=== PATIENT | female | born 1955 | race Caucasian/White ===

== ENCOUNTER 2017-11-16 05:59 | Day surgery (SDC) | payer BC ==
[~2017-11-16] VITALS: Ht 166.4 cm; Wt 52.6 kg
[2017-11-16] VITALS (8 sets, daily range): BP systolic 93–146; BP diastolic 48–66
[~2017-11-16 05:59] MED LIST: BOTULINUM TOXIN TYPE A 100 UNITS/VIAL INJ SCH; DEXL60CA3 PO; HYDR12.54 PO; LOPE2 PO; NEBI20TA2 PO
[2017-11-16] MEDS ORDERED: FENTANYL CITRATE PF 50 MCG/1 ML 2ML VIAL ONE (06:25)
[2017-11-16] MEDS ORDERED: LIDOCAINE HCL-MPF 2% 5ML VIAL ONE (06:26)
[2017-11-16] MEDS ORDERED: PROPOFOL 10 MG/ML 20ML VIAL IV ONE ×2 (06:26→07:02)
[2017-11-16] MEDS ORDERED: SODIUM CHLORIDE 0.9% 1000ML 1,000 ML IV ONE (08:17)
== END 2017-11-16 07:45 | disposition home or self-care (01) ==
LOC: DAH 05:59
PROVIDERS: ATTEND Internal Medicine Gastroenterology
DX: K52.839 Microscopic colitis, unspecified (principal); K29.50 Unspecified chronic gastritis without bleeding; K21.0 Gastro-esophageal reflux disease with esophagitis; I10 Essential (primary) hypertension; Z87.891 Personal history of nicotine dependence; Z79.899 Other long term (current) drug therapy; E78.5 Hyperlipidemia, unspecified; Z98.890 Other specified postprocedural states; Z98.49 Cataract extraction status, unspecified eye
CPT/HCPCS: 43236; 43239; 43249; 45380; 88305; A4606; J0585; J2704 ×2; J3010; J3490; J7030